=== PATIENT | male | born 1960 ===

== ENCOUNTER 2022-06-02 05:42 | Day surgery (SDC) | payer OTHER ==
[~2022-06-02] VITALS: Ht 177.8 cm; Wt 103.4 kg
[~2022-06-02 05:42] MED LIST: ATORVASTATIN CA10 MG PO; GABAPENTIN300 M2 PO; GEMFIBROZIL600 MG PO; LANTUS SOL100 UNIT/1; METFORMIN HCL1000 M2 PO; PENTOXIFYLLINE400 MG PO; SYNTHROID50 MCG PO; TRULICITY0.75 MG/0.; ZESTORETIC 20-1 EACH PO
[2022-06-02] MEDS ORDERED: PERCOCET 5-3251 EACH PO (12:12)
== END 2022-06-02 14:15 | disposition home or self-care (01) ==
LOC: CIR.AMB 05:42
PROVIDERS: ATTEND Surgery
DX: N52.01 Erectile dysfunction due to arterial insufficiency (principal); E78.5 Hyperlipidemia, unspecified; Z86.16 Personal history of COVID-19; Z87.891 Personal history of nicotine dependence; E03.9 Hypothyroidism, unspecified; E11.9 Type 2 diabetes mellitus without complications; Z79.4 Long term (current) use of insulin; Z20.822 Contact with and (suspected) exposure to COVID-19
CPT/HCPCS: 54405; C1813